=== PATIENT | female | born 1940 | race Caucasian/White ===

== ENCOUNTER 2020-07-16 10:40 | Emergency (ER) | payer MEDICARE, BC ==
[~2020-07-16] VITALS: Ht 162.6 cm; Wt 77.6 kg
--- OUTSIDE RECORDS SUMMARY | 2020-07-16 11:12 | XMS REPORT | Continuity of Care Document ---
Author Author [facility] Organization [facility] Address [address] [place] [address] Phone Unavailable Care Team Providers Care Certified Genetic Counselor Name Role Phone Unavailable Unavailable Payers Payer Name Policy Type Policy Number Effective Date Expiration Date S ource Problems This patient has no known problems. Allergies, Adverse Reactions, Alerts This patient has no known allergies or adverse reactions. Medications This patient has no known medications. Procedures This patient has no known procedures. Results Test Description Test Time Test Comments Results Result Comments Source SCR MAMM BILATERAL GAUDENCIO CAD DIGITAL 2020-04-21 14:16:54 - SCR MAMM BILATERAL GAUDENCIO CAD DIGITALBILATERAL DIGITAL SCREENING MAMMOGRAM 3D/2D WITH CAD: 04/21/2020Digital breast tomosynthesis was performed in addition to routine CC and MLO views. Current mammographic images were evaluated by either a [employer] M-Vu or a [employer] ImageChecker CAD (computer aided detection system). Comparison is made to exams dated 03/23/2019 mammogram, 04/03/2018 mammogram, and 03/15/2017 mammogram - [facility]. There are scattered fibroglandular tissues in both breasts. No suspicious mass, architectural distortion, malignant type calcification, or lymph node abnormality detected. Breast architecture is stable compared to prior exams.IMPRESSION: NEGATIVEThere is no mammographic evidence of malignancy. Resume annual screening mammography in one year. Ema Zamora M.D. dm/penrad:04/21/2020 14:16:54 Athletic Equipment Manager: Maryam Flores FW, [facility] sent: BIRADS 1-2 Normal Mammogram BI-RADS: 1 Negative LIPID PROFILE (CORONARY RISK) 2020-02-13 11:01:00 Test Item TRIGLYCERIDES (test code = TRIG) 193 mg/dL 20-150 H CHOLESTEROL (test code = CHOL) 214 mg/dL 0-200 H CHOLESTEROL/HDL RATIO (test code = CHOLHDL) 4.0 RATIO 0-4.9 N RISK ASSOCIATED WITH CHOL/HDL RATIOS: Risk Male Female1/2 AVERAGE 3.43 3.27AVERAGE 4.97 4.442X AVERAGE 9.55 7.053X AVERAGE 23.39 11.04 REFERENCE VALUE IS RELATED TO RISK LEVELS ASRECOMMENDED BY THE DEVAN. HEART, LUNG, AND BLOOD INST. HDL CHOLESTEROL (test code = HDL) 44 mg/dL 40-60 N LIPOPROTEIN LDL (test code = LDL) 142 mg/dL 100-129 H RN PERSONNEL, CONTACT PHYSICIAN IMMEDIATELY IF THIS IS A STROKE, AMI OR CAROTID STENOSIS PATIENT WHEN THE LDL >100 (1ST OCCURENCE, THIS ADMISSION) Reference Interval: mg/dL mmol/L Optimal <100 <2.6Near/above optimal 100-129 2.6- 3.3Borderline High 130-159 3.4-4.1High 160-189 4.1-4.9Very High >=190 >=4.9========= This LDL result is a direct measurement.========= SCR MAMM BILATERAL GAUDENCIO CAD [id number] 08:48:34 - SCR MAMM BILATERAL GAUDENCIO CAD DIGITALBILATERAL DIGITAL SCREENING MAMMOGRAM 3D/2D WITH CAD: 03/23/2019CLINICAL: Asymptomatic. Digital breast tomosynthesis was performed in addition to routine CC and MLO views. Current mammographic images were evaluated by either a [employer] M-Vu or a [employer] ImageChecker CAD (computer aided detection system). Comparison is made to exams dated 04/03/2018 mammogram, mammogram, and 03/12/2016 mammogram - [facility]. There are scattered fibroglandular tissues in both breasts. No suspicious mass, arch itectural distortion, malignant type calcification, or lymph node abnormality de tected. Breast architecture is stable compared to prior exams.IMPRESSION: NEGAT IVEThere is no mammographic evidence of malignancy. Resume annual screening mamm ography in one year. Ema Zamora M.D. dm/penrad:03/27/2019 08:48:34 I sandy Technologist: Fidelia BRENNAN, [facility] sent: B IRADS 1-2 Normal Mammogram BI-RADS: 1 Negative
[2020-07-16] MEDS ORDERED: KETOROLAC TROMETHAMINE 60 MG/2 ML VIAL IM ONE (11:15)
[2020-07-16] MEDS ORDERED: PREDNISONE 20 MG TAB PO ONE (11:15)
[2020-07-16] MEDS ORDERED: PREDNISONE 20 MG TAB ONE (11:17)
[2020-07-16] MEDS ORDERED: KETOROLAC TROMETHAMINE 60 MG/2 ML VIAL ONE (11:18)
[2020-07-16] MEDS ORDERED: DOXYCYCLINE HY100 M4 PO (11:21)
[2020-07-16] MEDS ORDERED: PREDNISONE20 MG PO (11:21)
--- NOTE | 2020-07-16 11:22 | Emergency Department Note ---
History of Present Illnes History of Present Illness Chief Complaint: left foot/ankle/leg pain and redness s/p bit by an insect History of Present Illness This is a 80 year old female. was doing well prior to this. Historian: Patient Arrival Mode: Car History limited by: condition of the patient (normal ) Renderer Required: No Onset (how long ago): day(s) (1) Location: lle Quality: pain Radiation: Reports non-radiation Severity: moderate Onset quality: gradual Duration (how long): day(s) (1) Timing of current episode: constant Progression: worsening Chronicity: new Context: Reports trauma/injury; Denies recent illness, Denies recent surgery, Denies recent immobilization, Denies recent travel, Denies new medications, Denies hx of DVT/PE, Denies non- compliance w/ medications Relieving factors: none Exacerbating factors: movement Associated symptoms: Reports denies other symptoms Treatments prior to arrival: none Past Medical/Family History Physician Review I have reviewed the patient's past medical and family history. Any updates have been documented here. Past Medical History Recent Fever: No Clinical Suspicion of Infectio: No New/Unexplained Change in Ment: No Past Medical History: None Past Surgical History: Hysterectomy Other Surgery: bladder suspension Social History Smoking Cessation: Never Smoker Counseling Performed: No Alcohol Use: None Any Illegal Drug Use: No Physically hurt or threatened: No Other Any Pre-Existing Lines (PICC,: No Review of Systems Review of Systems Constitutional: Reports no symptoms EENTM: Reports no symptoms Cardiovascular: Reports no symptoms Respiratory: Reports no symptoms Gastrointestinal: Reports no symptoms Genitourinary: Reports no symptoms Musculoskeletal: Reports as per HPI, Reports muscle pain (lle) Integumentary: Reports as per HPI, Reports change in color Neurological: Reports no symptoms Psychological: Reports no symptoms Endocrine: Reports no symptoms Hematological/Lymphatic: Reports no symptoms Review of other systems: All other systems negative Physical Exam Related Data Allergies: Coded Allergies: Sulfa (Sulfonamide Antibiotics) (Verified Allergy, Unknown, 07/16/20) Triage Vital Signs Vital Signs Date Time Temp Pulse Resp B/P (MAP) Pulse Ox O2 Delivery O2 Flow Rate FiO2 07/16/20 10:43 98.5 85 14 131/68 100 Room Air Vital signs reviewed: Yes Physical Exam CONSTITUTIONAL Constitutional: Present well-developed, Present well-nourished HENT HENT: Present normocephalic, Present atraumatic, Present oropharynx clear/moist, Present nose normal HENT L/R: Present left ext ear normal, Present right ext ear normal EYES Eyes: Reports PERRL, Reports conjunctivae normal NECK Neck: Present ROM normal, Present supple PULMONARY Pulmonary: Present effort normal, Present breath sounds normal CARDIOVASCULAR Cardiovascular: Present regular rhythm, Present heart sounds normal, Present capillary refill normal, Present normal rate GASTROINTESTINAL Abdominal: Present soft, Present nontender, Present bowel sounds normal GENITOURINARY Genitourinary: Present exam deferred SKIN Skin: Present warm, Present dry, Present erythema (tender maculopapular blanching rash) MUSCULOSKELETAL Musculoskeletal: Present ROM normal NEUROLOGICAL Neurological: Present alert, Present oriented x 3, Present no gross motor or sensory deficits PSYCHOLOGICAL Psychological: Present mood/affect normal, Present judgement normal Assessment & Plan Medical Decision Making MDM SEE BELOW Assessment & Plan Final Impression: (1) Insect bite of left lower leg with local reaction Depart Disposition: HOME, SELF-CARE Last Vital Signs Date Time Temp Pulse Resp B/P (MAP) Pulse Ox O2 Delivery O2 Flow Rate FiO2 07/16/20 10:43 98.5 85 14 131/68 100 Room Air Home Meds Active Scripts Prednisone (PREDNISONE) 20 Mg Tab, 60 MG PO DAILY, #15 TAB START TOMORROW. TAKE 3 20 MG PILLS AT ONCE Prov:DANILO JACOBS 07/16/20 Doxycycline Hyclate (DOXYCYCLINE HYCLATE) 100 Mg Tablet.dr, 100 MG PO Q12H, #20 TAB Prov:DANILO JACOBS 07/16/20 DANILO JACOBS Jul 16, 2020 11:22
== END 2020-07-16 11:27 | disposition home or self-care (01) ==
LOC: FSED 10:40
DX: M79.662 Pain in left lower leg (principal); S80.862A Insect bite (nonvenomous), left lower leg, initial encounter
CPT/HCPCS: 96372; 99283; J1885; J7512

== ENCOUNTER 2020-07-18 13:44 | Inpatient (IN) | payer MEDICARE, BC ==
[~2020-07-18] VITALS: Ht 162.6 cm; Wt 77.6 kg
[~2020-07-18 13:44] MED LIST: DOXYCYCLINE HY100 M4 PO; PREDNISONE20 MG PO
[2020-07-18 14:59] LABS: BASOPHILS % 0.2 % (0.0-1.0); HEMATOCRIT 41.1 % (34.2-44.1); HEMOGLOBIN 13.3 g/dL (12.0-16.0); LYMPHOCYTES # (AUTO) 1.8 (1.0-3.2); LYMPHOCYTES % 12.1 % (18.0-39.1); MEAN CORPUSCULAR HGB CONC 32.4 g/dL (31-35); MEAN CORPUSCULAR VOLUME 92.8 fL (81-99); MONOCYTES # (AUTO) 0.4 (0.2-0.8); MONOCYTES % 2.7 % (4.4-11.3); NEUTROPHILS # (AUTO) 12.9 (2.1-6.9); NEUTROPHILS % 84.5 % (38.7-80.0); PLATELET COUNT 267 x10e3/uL (140-360); RED BLOOD COUNT 4.43 x10e6/uL (3.6-5.1); RED CELL DISTRIBUTION WIDTH 13.6 % (11.7-14.4)
[2020-07-18 15:12] LABS: INR 0.98; PROTHROMBIN TIME 13.5 seconds (11.9-14.5)
--- NOTE | 2020-07-18 15:17 | Emergency Department Note ---
History of Present Illnes History of Present Illness Chief Complaint: General Medicine Complaints History of Present Illness This is a 80 year old female arrived to the ED with complaints of left leg swelling and pain for several days. Patient states she was seen at the [facility] and thought the swelling was attributed to a bug bite but noticed it started worsening and turning red today. . Chief Complaint Comment PATIENT IN FROM DR MOJICA'S OFFICE FOR EVALUATION OF LEFT LEG SWELLING AND PAIN X 3 DAYS. PATIENT STATES THAT SHE WAS SEEN AT [facility] TUESDAY AND GIVEN ABX AND STEROIDS, BUT SYMPTOMS HAVE NOT IMPROVED. PATIENT WITH PAIN TO CALF WHEN WALKING. LEFT LEG WITH PITTING EDEMA, EXTREMITY COOL, CAP REFILL >3 SECONDS, FAINT PULSES PRESENT Historian: Patient Arrival Mode: Car Onset (how long ago): day(s) Radiation: Reports non-radiation Severity: mild Onset quality: gradual Duration (how long): day(s) Timing of current episode: constant Progression: worsening Chronicity: new Past Medical/Family History Physician Review I have reviewed the patient's past medical and family history. Any updates have been documented here. Past Medical History Recent Fever: No Clinical Suspicion of Infectio: Yes New/Unexplained Change in Ment: No Past Medical History: Hyperlipedemia Past Surgical History: Hysterectomy Other Surgery: bladder suspension Social History Smoking Cessation: Never Smoker Counseling Performed: No Physically hurt or threatened: No Review of Systems Review of Systems Constitutional: Reports no symptoms EENTM: Reports no symptoms Cardiovascular: Reports no symptoms Respiratory: Reports no symptoms Gastrointestinal: Reports no symptoms Genitourinary: Reports no symptoms Musculoskeletal: Reports as per HPI, Reports joint swelling, Reports muscle pain Integumentary: Reports no symptoms Neurological: Reports no symptoms Psychological: Reports no symptoms Endocrine: Reports no symptoms Hematological/Lymphatic: Reports no symptoms Physical Exam Related Data Allergies: Coded Allergies: Sulfa (Sulfonamide Antibiotics) (Verified Allergy, Unknown, 07/18/20) Triage Vital Signs Vital Signs Date Time Temp Pulse Resp B/P (MAP) Pulse Ox O2 Delivery O2 Flow Rate FiO2 07/18/20 13:52 98.4 79 18 118/77 98 Room Air Physical Exam CONSTITUTIONAL Constitutional: Present well-developed, Present well-nourished HENT HENT: Present normocephalic, Present atraumatic, Present oropharynx clear/moist, Present nose normal HENT L/R: Present left ext ear normal, Present right ext ear normal EYES Eyes: Reports PERRL, Reports conjunctivae normal NECK Neck: Present ROM normal PULMONARY Pulmonary: Present effort normal, Present breath sounds normal CARDIOVASCULAR Cardiovascular: Present regular rhythm, Present heart sounds normal, Present capillary refill normal, Present normal rate GASTROINTESTINAL Abdominal: Present soft, Present nontender, Present bowel sounds normal GENITOURINARY Genitourinary: Present exam deferred SKIN Skin: Present warm, Present dry MUSCULOSKELETAL Musculoskeletal: Present tenderness, Present swelling, Present other (marked redness erythema, faint palpable DP/PT pulses) NEUROLOGICAL Neurological: Present alert, Present oriented x 3, Present no gross motor or sensory deficits PSYCHOLOGICAL Psychological: Present mood/affect normal, Present judgement normal Results Laboratory Result Diagram: 07/18/20 1420 Laboratory Laboratory Tests Test 07/18/20 14:20 White Blood Count 15.25 x10e3/uL (4.8-10.8) Red Blood Count 4.43 x10e6/uL (3.6-5.1) Hemoglobin 13.3 g/dL (12.0-16.0) Hematocrit 41.1 % (34.2-44.1) Mean Corpuscular Volume 92.8 fL (81-99) Mean Corpuscular Hemoglobin 30.0 pg (28-32) Mean Corpuscular Hemoglobin Concent 32.4 g/dL (31-35) Red Cell Distribution Width 13.6 % (11.7-14.4) Platelet Count 267 x10e3/uL (140-360) Neutrophils (%) (Auto) 84.5 % (38.7-80.0) Lymphocytes (%) (Auto) 12.1 % (18.0-39.1) Monocytes (%) (Auto) 2.7 % (4.4-11.3) Eosinophils (%) (Auto) 0.0 % (0.0-6.0) Basophils (%) (Auto) 0.2 % (0.0-1.0) Neutrophils # (Auto) 12.9 (2.1-6.9) Lymphocytes # (Auto) 1.8 (1.0-3.2) Monocytes # (Auto) 0.4 (0.2-0.8) Eosinophils # (Auto) 0.0 (0.0-0.4) Basophils # (Auto) 0.0 (0.0-0.1) Absolute Immature Granulocyte (auto 0.07 x10e3/uL (0-0.1) Assessment & Plan Medical Decision Making MDM 80-year-old female arrived to the ED with left lower extremity swelling, faint palpable pulse with concerns of arterial-occlusion. Venous actual duplex ordered that was concerning for a markedly large clot noted in the venous system Assessment & Plan Final Impression: (1) DVT (deep venous thrombosis) Depart Disposition: ADMITTED Last Vital Signs Date Time Temp Pulse Resp B/P (MAP) Pulse Ox O2 Delivery O2 Flow Rate FiO2 07/18/20 13:52 98.4 79 18 118/77 98 Room Air Home Meds Active Scripts Prednisone (PREDNISONE) 20 Mg Tab, 60 MG PO DAILY, #15 TAB START TOMORROW. TAKE 3 20 MG PILLS AT ONCE Prov:DANILO JACOBS 07/16/20 Doxycycline Hyclate (DOXYCYCLINE HYCLATE) 100 Mg Tablet.dr, 100 MG PO Q12H, #20 TAB Prov:DANILO JACOBS 07/16/20 MARVIN ALAS DO Jul 18, 2020 15:17
[2020-07-18 15:22] LABS: ALANINE AMINOTRANSFERASE 14 IU/L (0-55); ALBUMIN 3.8 g/dL (3.5-5.0); ALBUMIN/GLOBULIN RATIO 1.1 (0.8-2.0); ALKALINE PHOSPHATASE 53 IU/L (40-150); ANION GAP 19.5 mmol/L (8-16); BLOOD UREA NITROGEN 35 mg/dL (7-26); BUN/CREATININE RATIO 33 (6-25); CALCIUM 9.9 mg/dL (8.4-10.2); CARBON DIOXIDE 21 mmol/L (22-29); CHLORIDE 105 mmol/L (98-107); CREATINE KINASE 48 IU/L (29-168); CREATININE, SERUM 1.05 mg/dL (0.57-1.11); EST GLOMERULAR FILTRATION RATE 51 ML/MIN (60-); GLUCOSE 130 mg/dL (74-118); POTASSIUM 4.5 mmol/L (3.5-5.1); SODIUM 141 mmol/L (136-145)
[2020-07-18] MEDS ORDERED: ENOXAPARIN INJ 80 MG/0.8 ML SYR SC SCH (16:00)
--- OUTSIDE RECORDS SUMMARY | 2020-07-18 17:05 | XMS REPORT | Continuity of Care Document ---
Author Author [facility] t Organization [facility] Address [address] [place] [address] Phone Unavailable Care Team Providers Care Licensed Vocational Nurse Name Role Phone MD Estela MOJCIA PCP Payers Payer Name Policy Type Policy Number Effective Date Expiration Date Estela aggarwal [facility] [id number] 2012 00:00:00 [facility] Medicare A & B [id number] 2006 00:00:00 [facility] Problems Condition Name Condition Details Condition Category Status Onset Date Resolution Date Last Treatment Date Treating Clinician Comments Source Insect bite of left lower leg with local reaction Problem Active [facility] Allergies, Adverse Reactions, Alerts Allergy Name Allergy Type Status Severity Reaction(s) Onset Date Inacti ve Date Treating Clinician Comments Source Sulfa (Sulfonamide Antibiotics) Allergy to substance Active 2020-07-16 00:00:00 [facility] Social History Social Habit Start Date Stop Date Quantity Comments Source Sex Assigned At 1940 00:00:00 1940 00:00:00 Female [facility] Medications Ordered Medication Name Filled Medication Name Start Date Stop Da te Current Medication? Ordering Clinician Indication Dosage Frequency Signature (SIG) Comments Components Source Doxycycline Hyclate Doxycycline Hyclate 2020-07-16 11:21:00 Yes 100 Every 12 Hours [facility] Prednisone Prednisone 2020-07-16 11:21:00 Yes 60 Toña ly [facility] Vital Signs Vital Name Observation Time Observation Value Comments Source Weight 2020-07-16 10:43:00 171.06 [lb_av] [facility] BMI (Body Mass Index) 2020-07-16 10:43:00 29.4 kg/m2 [facility] Procedures This patient has no known procedures. Plan of Care Planned Activity Planned Date Details Comments Source Instructions Insect Bites and Stings [facility] Encounters Start Date/Time End Date/Time Encounter Type Admission Type Att[facility] Facility Care Department Encounter ID Source 2020-07-16 10:40:00 2020-07-16 11:27:00 Departed Emergency Room [facility] [id number] [facility] Results Test Description Test Time Test Comments Results Result Comments Source SCR MAMM BILATERAL GAUDENCIO CAD DIGITAL 2020-04-21 14:16:54 - SCR MAMM BILATERAL GAUDENCIO CAD DIGITALBILATERAL DIGITAL SCREENING MAMMOGRAM 3D/2D WITH CAD: 04/21/2020Digital breast tomosynthesis was performed in addition to routine CC and MLO views. Current mammographic images were evaluated by either a [employer] M-Vu or a [employer] ImageChecker CAD (computer aided detection system). Comparison is made to exams dated 03/23/2019 mammogram, 04/03/2018 mammogram, and 03/15/2017 mammogram - [facility] There are scattered fibroglandular tissues in both breasts. No suspicious mass, architectural distortion, malignant type calcification, or lymph node abnormality detected. Breast architecture is stable compared to prior exams.IMPRESSION: NEGATIVEThere is no mammographic evidence of malignancy. Resume annual screening mammography in one year. Ema Zamora M.D. dm/valeri:04/21/2020 14:16:54 Juice Mixer: Maryam Flores , [facility] sent: BIRADS 1-2 Normal Mammogram [...] direct measurement.========= SCR MAMM BILATERAL GAUDENCIO CAD [id number] 08:48:34 - SCR MAMM BILATERAL GAUDENCIO CAD DIGITALBILATERAL DIGITAL SCREENING MAMMOGRAM 3D/2D WITH CAD: 03/23/2019CLINICAL: Asymptomatic. Digital breast tomosynthesis was performed in addition to routine CC and MLO views. Current mammographic images were evaluated by either a [employer] M-Vu or a [employer]att[employer]cker CAD (computer aided detection system). Comparison is made to exams dated 04/03/2018 mammogram, 4 / mammogram, and 03/12/2016 mammogram - [facility]. There are scattered fibroglandular tissues in both breasts. No suspicious mass, arch itectural distortion, malignant type calcification, or lymph node abnormality de tected. Breast architecture is stable compared to prior exams.IMPRESSION: NEGAT IVEThere is no mammographic evidence of malignancy. Resume annual screening mamm ography in one year. Ema mcneil/penrad:03/27/2019 08:48:34 I sandy Technologist: Fidelia BRENNAN, [facility] sent: B IRADS 1-2 Normal Mammogram BI-RADS: 1 Negative
--- OUTSIDE RECORDS SUMMARY | 2020-07-18 17:26 | XMS REPORT | Continuity of Care Document ---
Author Author [facility] t Organization [facility] Address [address] [place] [address] Phone Unavailable Care Team Providers Care After School Caregiver Name Role Phone MD Estela MJOICA PCP Payers Payer Name Policy Type Policy Number Effective Date Expiration Date Estela aggarwal [facility] [id number] 2012 00:00:00 [facility] Medicare A & B [id number] 2006 00:00:00 [facility] Problems Condition Name Condition Details Condition Category Status Onset Date Resolution Date Last Treatment Date Treating Clinician Comments Source Insect bite of left lower leg with local reaction Problem Active [facility] Allergies, Adverse Reactions, Alerts Allergy Name Allergy Type Status Severity Reaction(s) Onset Date Inacti ve Date Treating Clinician Comments Source Sulfa (Sulfonamide Antibiotics) Allergy to substance Active 2020-07-16 00:00:00 [facility] Social History Social Habit Start Date Stop Date Quantity Comments Source Sex Assigned At 1940 00:00:00 1940 00:00:00 Female [facility] Medications Ordered Medication Name Filled Medication Name Start Date Stop Da te Current Medication? Ordering Clinician Indication Dosage Frequency Signature (SIG) Comments Components Source Doxycycline Hyclate Doxycycline Hyclate 2020-07-16 11:21:00 Yes 100 Every 12 Hours [facility] Prednisone Prednisone 2020-07-16 11:21:00 Yes 60 Toña ly [facility] Vital Signs Vital Name Observation Time Observation Value Comments Source Weight 2020-07-16 10:43:00 171.06 [lb_av] [facility] BMI (Body Mass Index) 2020-07-16 10:43:00 29.4 kg/m2 [facility] Procedures This patient has no known procedures. Plan of Care Planned Activity Planned Date Details Comments Source Instructions Insect Bites and Stings [facility] Encounters Start Date/Time End Date/Time Encounter Type Admission Type Attendi [facility] Facility Care Department Encounter ID Source 2020-07-16 10:40:00 2020-07-16 11:27:00 Departed Emergency Room [facility] [id number] [facility] Results Test Description Test Time Test Comments Results Result Comments Source SCR MAMM BILATERAL GAUDENCIO CAD DIGITAL 2020-04-21 14:16:54 - SCR MAMM BILATERAL GAUDENCIO CAD DIGITALBILATERAL DIGITAL SCREENING MAMMOGRAM 3D/2D WITH CAD: 04/21/2020Digital breast tomosynthesis was performed in addition to routine CC and MLO views. Current mammographic images were evaluated by either a [employer] M-Vu or a [employer] ImageChecker CAD (computer aided detection system). Comparison is made to exams dated 03/23/2019 mammogram, 04/03/2018 mammogram, and 03/15/2017 mammogram - [facility] There are scattered fibroglandular tissues in both breasts. No suspicious mass, architectural distortion, malignant type calcification, or lymph node abnormality detected. Breast architecture is stable compared to prior exams.IMPRESSION: NEGATIVEThere is no mammographic evidence of malignancy. Resume annual screening mammography in one year. Ema Zamora M.D. dm/valeri:04/21/2020 14:16:54 Soaping Machine Back Tender: Maryam Flores , [facility] sent: BIRADS 1-2 Normal Mammogram [...] direct measurement.========= SCR MAMM BILATERAL GAUDENCIO CAD [id number] 08:48:34 - SCR MAMM BILATERAL GAUDENCIO CAD DIGITALBILATERAL DIGITAL SCREENING MAMMOGRAM 3D/2D WITH CAD: 03/23/2019CLINICAL: Asymptomatic. Digital breast tomosynthesis was performed in addition to routine CC and MLO views. Current mammographic images were evaluated by either a [employer] M-Vu or a [employer] ImageCyphortcker CAD (computer aided detection system). Comparison is made to exams dated 04/03/2018 mammogram, mammogram, and 03/12/2016 mammogram - [facility]. There are scattered fibroglandular tissues in both breasts. No suspicious mass, arch itectural distortion, malignant type calcification, or lymph node abnormality de tected. Breast architecture is stable compared to prior exams.IMPRESSION: NEGAT IVEThere is no mammographic evidence of malignancy. Resume annual screening mamm ography in one year. Ema mcneil/penrad:03/27/2019 08:48:34 I sandy Technologist: Fidelia BRENNAN, [facility] sent: B IRADS 1-2 Normal Mammogram BI-RADS: 1 Negative
[2020-07-18] MEDS ORDERED: HEPARIN 25,000 UNIT 1,100 UNIT in DEXTROSE 5% 250ML 250 ML IV SCH (18:45)
[2020-07-18] MEDS ORDERED: HEPARIN 25,000 UNIT DRIP IV ONE (18:53)
[2020-07-18] MEDS: HEPARIN SOD (PORCINE) 1000 UNIT/ML SDV IV ONE ×2 (18:58→19:12)
[2020-07-18] MEDS: HEPARIN 25,000 UNIT 1,100 UNIT in DEXTROSE 5% 250ML 250 ML IV SCH (18:59)
--- NOTE | 2020-07-18 19:06 | History and Physical ---
CHIEF COMPLAINT: Left lower extremity swelling and redness. HISTORY OF PRESENT ILLNESS: Ms. Stephanie Mcleod is a 80-year-old female with a history of hyperlipidemia, who was in her usual state of health until about 3 days prior to admission. The patient woke up all of a sudden and noted that her left leg was enlarged and tender, went to [facility], was given antibiotic and prednisone 20 mg and was sent home. The patient today presents to the office with increased pain and erythema and tenderness in left lower extremity and was feeling cold and tender, and the patient was seen by the nurse practitioner and was sent to the emergency room for evaluation and care. Here, the patient was found to have a large clot and the patient is currently in the ER. MEDICATIONS: Include statin, name unknown at this time. PAST SURGICAL HISTORY: Had hysterectomy and bladder suspension. SOCIAL HISTORY: Nonsmoker. No EtOH. No IV drug abuse. REVIEW OF SYSTEMS: Negative for chest pain. No shortness of breath. No nausea. No vomiting. No diarrhea. No constipation. No rectal bleeding. No hematochezia. No hematemesis. No blurry vision. Positive for tenderness in the right lower extremity and positive for pain in the right lower extremity. ALLERGIES: ALLERGIC TO SULFONAMIDES. PHYSICAL EXAMINATION: VITAL SIGNS: On arrival, temperature was 98.4, pulse was 79, respirations of 18, blood pressure was 118/79, on room air. HEENT: Normocephalic, atraumatic. Pupils are reactive to light and accommodation. CVS: S1 and S2 normal. Regular rate and rhythm. ABDOMEN: Soft, nontender, nondistended. EXTREMITIES: Left lower extremity with tenderness, erythema, increased girth in the calf muscles. Decreased pulses. Poor cap refill. LABORATORY VALUES: White count is 15,000 with left shift of 84.5. Chemistry; sodium 141, potassium 4.5, BUN of 35, creatinine of 1.05 with a GFR of 51. SEROLOGY: Coronavirus pending. IMAGING: Initial preliminary study shows large left lower extremity clot. ASSESSMENT: 1. Deep venous thrombosis with vascular compromise. Cardiology consult with Dr. Etienne was already made for the patient. Plan on heparin drip and further indication of intervention if needed. 2. Hyperlipidemia. Continue with statin. 3. 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 PLAN: Continue to monitor the patient. Heparin drip. Further recommendation per clinical course and we will consult Dr. Etienne. MD BENNY Perez/ILSA /[id number]
[2020-07-18] MEDS ORDERED: HEPARIN SOD (PORCINE) 1000 UNIT/ML SDV ONE (19:14)
[2020-07-18] MEDS ORDERED: HEPARIN SOD (PORCINE) 5,000 UNIT/ML VIAL ONE (19:15)
[2020-07-18 20:13] VITALS: BP 141/62
--- NOTE | 2020-07-18 21:30 | NUR ---
patient is a new admit that arrived via stretcher. patient is awake and talking. patient is in the bed.patient has heparin drip infusing. telemetry is attached. bed is in lowest position and call light is within reach. will continue to monitor patient.
[2020-07-18 21:35] VITALS: BP 141/62
[2020-07-18 21:39] VITALS: BP 141/62
[2020-07-19] MEDS: SODIUM CHLORIDE 0.9% 1000ML 1,000 ML IV SCH ×3 (00:08→18:30)
[2020-07-19 00:10] VITALS: BP 138/54
[2020-07-19] MEDS ORDERED: IOPAMIDOL 370 MG/ML 200 ML INFUS..BTL INJ ONE (00:37)
[2020-07-19] MEDS ORDERED: SODIUM CHLORIDE 0.9% 50ML 50 ML ONE (00:38)
--- NOTE | 2020-07-19 01:03 | NUR ---
PTT result is 161.6. Heparin infusion will be held for 60 minutes.
--- NOTE | 2020-07-19 01:12 | Progress Note ---
DATE: 07/18/2020 Cardiology Progress Note The patient was initially seen at 1830 hours. Reassessment of patient done at 2225 hours. CONSULTING PHYSICIAN: Reymundo Ahumada MD, Interventional Cardiology. REASON FOR CONSULTATION: DVT. HISTORY OF PRESENT ILLNESS: Ms. Mcleod is a pleasant 80-year-old woman with a history of dyslipidemia, who presents with 3-day onset of left lower extremity edema. She was recently seen in Urgent Care Clinic. At that time, given antibiotics and prednisone and sent home due to worsening edema and erythema and discomfort to the left lower extremity. She returned to clinic where her primary care physician who sent the patient to the ER for urgent evaluation. She was found to have acute DVT. Heparin has been initiated. On initial assessment discomfort and edema, significant on repeat assessment. The patient reports some improvement in lower extremity discomfort. PAST SURGICAL HISTORY: Remarkable hysterectomy, bladder suspension. PAST MEDICAL HISTORY: Dyslipidemia. SOCIAL HISTORY: Denies smoking, alcohol, or drugs. REVIEW OF SYSTEMS: A 12-system reviewed negative except for as noted above. ALLERGIES: TO SULFA. PHYSICAL EXAMINATION: VITAL SIGNS: Temperature 97.2, heart rate 62, respiratory rate 18, blood pressure 141/62, O2 saturation 97% on room air. GENERAL: No acute distress. Alert. NECK: No JVD. CHEST: Clear to auscultation. CARDIOVASCULAR: Regular rate and rhythm. Normal S1, S2. No S3. No S4. No murmurs, no rubs. ABDOMEN: Soft. Bowel sounds positive. EXTREMITIES: Upper extremities without edema. 2+ pulses radial arriaga. Lower extremities, right lower extremity no edema. 2+ pulses in dorsalis pedis, 1+ posterior tibial pulse. Normal capillary refill rate less than 2 seconds. Left lower extremity on initial assessment has 3+ edema Cyanotic discoloration. Capillary refill at 4 seconds to toes. Dorsalis pedis pulse 1+. Posterior tibial pulse nonpalpable. Warm extremities. On repeat assessment, the left dorsalis pedis pulse has improved with 2+, right and left posterior tibial pulses now 1+. Capillary refill is now less than 2 seconds. Edema is slightly better. The patient describes symptomatic with some improvement. MEDICATIONS: On IV heparin and aspirin 81 mg daily. LABORATORY DATA: Studies reviewed coronary virus PCR pending. White blood cells 15.2, hemoglobin 13.3, platelets 261. PT 13.5, INR 0.98, PTT 23.4. Sodium 141, potassium 4.5, chloride 105, bicarbonate 21, BUN 35, creatinine 1.05, glucose 130, calcium 9.9, total bilirubin 0.4, AST 17, ALT 14, alkaline phosphatase 53. CK 48, CK-MB 1.3, troponin I less than 0.001. Total protein 7.4, albumin 3.8. Arterial Dopplers to left lower extremity reviewed. Triphasic waveforms and normal velocities to left common femoral SFA, the femoral and popliteal arteries. Biphasic waveforms to anterior tibial, posterior tibial, and dorsalis pedis with decreased velocities to the dorsalis pedis artery. Venous doppler reviewed, left common femoral vein, left femoral vein, left greater saphenous vein, left popliteal vein all completely occluded with acute DVT occlusive. Posterior tibial veins distally are patent. ASSESSMENT AND PLAN: A 80-year-old woman presents with acute left iliofemoral and femoropopliteal DVT 3-day symptom onset. 1. History dyslipidemia, recommend continue IV heparin as some improvement observed on initial reassessment. 2. Reviewed access site. Unfortunately, left popliteal is completely occluded, so the left greater saphenous vein occluded at this point for potential catheter-directed lytic therapy access. We will reassess based on clinical response to initial therapy. 3. Age appropriate cancer screening advised. 4. COVID-19 test pending. 5. Obtain echocardiogram, troponin I and BNP. 6. CTA chest PE protocol to evaluate for distal embolization in the setting of extensive burden deep venous thrombosis. 7. We will follow closely with you. 8. Cardiac prognosis. MD ISMAEL Engle/SHIMAL /[id number]
--- NOTE | 2020-07-19 02:04 | Diagnostic Imaging Report ---
EXAM: CT Chest WITH contrast (PE Protocol) INDICATION: SOB, DVT COMPARISON: None TECHNIQUE: Chest was scanned utilizing a multidetector helical scanner from the lung apex through the level of the diaphragm after administration of IV contrast. Thin section reconstructions were obtained with special concentration on the pulmonary arteries. Coronal and sagittal reformations were obtained. Pulmonary embolism protocol was performed. IV CONTRAST: 100 mL of Omnipaque 350 COMPLICATIONS: None RADIATION DOSE: Total DLP: 535.30 mGy*cm Estimated effective dose: (DLP x 0.014 x size factor) mSv CTDIvol has been reviewed. It is below the limits set by the Radiation Protocol Committee (RPC). Dose modulation, iterative reconstruction, and/or weight based adjustment of the mA/kV was utilized to reduce the radiation dose to as low as reasonably achievable. FINDINGS: LINES/ TUBES: None. LUNGS AND AIRWAYS: Filling defect in the right lower lobar pulmonary artery extending into a segmental branch. The lungs are unremarkable. Airways are normal. PLEURA: The pleural spaces are clear. HEART AND MEDIASTINUM: The thyroid gland is normal. No mediastinal, hilar or axillary lymphadenopathy. The heart is normal in size. There is no pericardial effusion. The thoracic aorta and main pulmonary artery are normal caliber. RV to LV size ratio is less than 1, normal. Septum is bowed to the right, normal. No contrast reflux into the IVC. UPPER ABDOMEN: Unremarkable BONES: The visualized bony thorax is within normal limits. SOFT TISSUES: Unremarkable. IMPRESSION: Pulmonary embolus and in the right lower lobar pulmonary artery extending to a segmental branch. No CT evidence of right heart strain. Results were communicated to Nurse Sorto on 07/19/2020 2:00 AM. Signed by: Peewee Lane MD on 07/19/2020 2:01 AM
--- NOTE | 2020-07-19 02:07 | NUR ---
Heparin drip has been restarted at 9cc/hr in accordance with Heparin infusion protocol.
[2020-07-19 05:11] LABS: BASOPHILS % 0.2 % (0.0-1.0); EOSINOPHILS % 0.2 % (0.0-6.0); HEMATOCRIT 36.4 % (34.2-44.1); HEMOGLOBIN 11.8 g/dL (12.0-16.0); LYMPHOCYTES # (AUTO) 5.9 (1.0-3.2); LYMPHOCYTES % 35.4 % (18.0-39.1); MEAN CORPUSCULAR HEMOGLOBIN 29.9 pg (28-32); MEAN CORPUSCULAR HGB CONC 32.4 g/dL (31-35); MEAN CORPUSCULAR VOLUME 92.4 fL (81-99); MONOCYTES # (AUTO) 1.2 (0.2-0.8); MONOCYTES % 7.3 % (4.4-11.3); NEUTROPHILS # (AUTO) 9.4 (2.1-6.9); NEUTROPHILS % 56.4 % (38.7-80.0); PLATELET COUNT 236 x10e3/uL (140-360); RED BLOOD COUNT 3.94 x10e6/uL (3.6-5.1); RED CELL DISTRIBUTION WIDTH 13.7 % (11.7-14.4)
[2020-07-19 05:19] VITALS: BP 144/53
[2020-07-19] MEDS ORDERED: TRAMADOL HCL 50 MG TAB PO PRN (05:30)
[2020-07-19] MEDS ORDERED: ACETAMINOPHEN 325 MG TAB PO PRN (05:30)
[2020-07-19 05:32] LABS: ALANINE AMINOTRANSFERASE 12 IU/L (0-55); ALBUMIN 3.2 g/dL (3.5-5.0); ALBUMIN/GLOBULIN RATIO 1.1 (0.8-2.0); ALKALINE PHOSPHATASE 42 IU/L (40-150); ANION GAP 15.1 mmol/L (8-16); BLOOD UREA NITROGEN 33 mg/dL (7-26); BUN/CREATININE RATIO 40 (6-25); CALCIUM 8.8 mg/dL (8.4-10.2); CARBON DIOXIDE 20 mmol/L (22-29); CHLORIDE 109 mmol/L (98-107); CREATININE, SERUM 0.82 mg/dL (0.57-1.11); EST GLOMERULAR FILTRATION RATE > 60 ML/MIN (60-); GLUCOSE 87 mg/dL (74-118); POTASSIUM 4.1 mmol/L (3.5-5.1); SODIUM 140 mmol/L (136-145)
[2020-07-19 05:56] LABS: CHOL/HDL RATIO 2.8 (3.0-3.6)
[2020-07-19 07:10] LABS: INR 1.08; PROTHROMBIN TIME 14.6 seconds (11.9-14.5)
[2020-07-19 07:46] LABS: PARTIAL THROMBOPLASTIN TIME 100.8 seconds (23.8-35.5)
[2020-07-19] MEDS: HEPARIN 25,000 UNIT 1,100 UNIT in DEXTROSE 5% 250ML 250 ML IV SCH ×2 (08:05→15:20)
[2020-07-19 08:57] VITALS: BP 136/53
[2020-07-19] MEDS ORDERED: ASPIRIN 81 MG CHEW TAB PO SCH (09:00)
[2020-07-19 09:52] VITALS: BP 136/53
[2020-07-19] MEDS ORDERED: LIDOCAINE HCL 2% LOCAL 20 ML VIAL ONE (12:40)
[2020-07-19 14:03] VITALS: BP 138/66
[2020-07-19 17:21] VITALS: BP 140/52
--- NOTE | 2020-07-19 17:54 | NUR ---
REPORT GIVEN TO Orlando LEE RN AT [facility], PATIENT TO GO TO ROOM 1035.
[2020-07-19] MEDS ORDERED: HEPARIN 25,000 UNIT DRIP IV ONE (18:35)
--- NOTE | 2020-07-19 19:17 | NUR ---
SPOKE TO DR. ECHOLS REGARDING TRANSFER TO [facility]. DISCHARGE ORDER RECEIVED
--- NOTE | 2020-07-19 21:25 | Progress Note ---
DATE: 07/19/2020 Cardiology Progress Note SUBJECTIVE: Stephanie has noticed some worsening of her lower extremity edema today. OBJECTIVE: VITAL SIGNS: Temperature 97.8, heart rate 56, blood pressure 136/53, respiratory rate 24, O2 saturation 96%, BMI 29. GENERAL: In no acute distress alert. NECK: No JVD. CHEST: Clear to auscultation. CARDIOVASCULAR: Regular rate and rhythm. Normal S1 and S2. ABDOMEN: Soft. Bowel sounds positive. EXTREMITIES: Left lower extremity 3+ edema. Decreased capillary refill to the left toes at 5 seconds. Palpable pulses. Warm extremities. CARDIOVASCULAR MEDICATIONS: Reviewed. On IV heparin, aspirin 81 mg daily. STUDIES: Reviewed. CT scan positive for right side PE without significant change in RV to LV diameter. Echocardiogram with preserved left ventricular systolic function, LVEF 55% to 60%.. BNP and troponin I within normal values. Creatinine 0.8, hemoglobin 11.8, white blood cells 16, platelets 236. INR 1.08, PT 14.6 PTT 100. AST 15, ALT 12, alkaline phosphatase 42. ASSESSMENT AND PLAN: 1. 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 2. Pulmonary embolism. 3. Dyslipidemia. RECOMMEND: 1. COVID-19 test is pending, await results. 2. Continue IV heparin. 3. Attempted bedside access to the posterior tibial veins, however, these are either occluded or tortuous upon wire entry. Discussed with the patient and family members transfer to higher level of care, Vascular Surgery consult in [facility]. Limited access options in the setting of significant extensive DVT. Consideration of mechanical thrombectomy if endovascular strategies remain limited. Reymundo Ahumada MD AFJimmy/ILSA /[id number] MTDD
== END 2020-07-19 20:14 | disposition short-term general hospital (02) | DRG 299 ==
LOC: ER 14:20 → ERHOLD 15:56 → MED/SURG 20:00
PROVIDERS: ADMIT Family Medicine; ATTEND Family Medicine
DX: I82.422 Acute embolism and thrombosis of left iliac vein (principal); I26.99 Other pulmonary embolism without acute cor pulmonale; I82.412 Acute embolism and thrombosis of left femoral vein; I82.432 Acute embolism and thrombosis of left popliteal vein; E78.5 Hyperlipidemia, unspecified; Z88.2 Allergy status to sulfonamides; Z11.59 Encounter for screening for other viral diseases; I12.9 Hypertensive chronic kidney disease with stage 1 through stage 4 chronic kidney disease, or unspecified chronic kidney disease; N18.3 Chronic kidney disease, stage 3 (moderate)
CPT/HCPCS: 36415; 71260; 80053; 80061; 82550; 82553; 83036; 83880; 84484; 85025; 85610; 85730; 93306; 93926; 93971; 99284; J1644; J1650; J2001; J7030; Q9967; U0002